=== PATIENT | male | born 1990 | race Caucasian/White ===

== ENCOUNTER 2019-03-25 10:49 | Emergency (ER) | payer SELFPAY ==
[~2019-03-25] VITALS: Ht 167.6 cm; Wt 67.1 kg
[2019-03-25] MEDS ORDERED: IV NORMAL SALINE 1,000ML 1,000 ML IV ONE (11:15)
--- NOTE | 2019-03-25 11:27 | PHYS DOC ---
Past History Past Medical History: No Pertinent History Past Surgical History: Cholecystectomy Alcohol Use: Occasionally Drug Use: None Adult General Chief Complaint Chief Complaint: TESTICULAR PAIN OR INJURY HPI HPI 28-year-old male presents with right testicle and groin pain. 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 He was painting attack on Tuesday, 2 days ago when he had sudden feeling of pain in his testicles. He states that it felt like someone hit him in the testicles. There was no trauma. Patient continued to have achiness yesterday and it seemed to swell. Today when the patient woke up, testicle was extremely tender and swollen on the right. The pain radiates up into the inguinal canal. Even allowing his scrotum pain is very painful. He denies fever or chills. Review of Systems Review of Systems Constitutional: Denies fever or chills [] Eyes: Denies change in visual acuity, redness, or eye pain [] HENT: Denies nasal congestion or sore throat [] Respiratory: Denies cough or shortness of breath [] Cardiovascular: No additional information not addressed in HPI [] GI: Denies abdominal pain, nausea, vomiting, bloody stools or diarrhea [] : Right testicle and groin pain[] Musculoskeletal: Denies back pain or joint pain [] Integument: Denies rash or skin lesions [] Neurologic: Denies headache, focal weakness or sensory changes [] Endocrine: Denies polyuria or polydipsia [] All other systems were reviewed and found to be within normal limits, except as documented in this note. Current Medications Current Medications Current Medications Medications (Trade) Dose Ordered Sig/Mitchell Start Time Stop Time Status Last Admin Dose Admin Iohexol (Omnipaque 300 Mg/ml) 75 ml 1X ONCE 03/25/19 11:30 03/25/19 11:31 UNV Sodium Chloride 1,000 ml @ 1,000 mls/hr 1X ONCE 03/25/19 11:15 03/25/19 12:14 UNV Allergies Allergies Allergies Coded Allergies Type Severity Reaction Last Updated Verified shellfish derived Allergy Severe 03/25/19 Yes Physical Exam Physical Exam Constitutional: Well developed, well nourished, moderate distress, in pain, non- toxic appearance. [] HENT: Normocephalic, atraumatic, bilateral external ears normal, oropharynx moist, no oral exudates, nose normal. [] Eyes: PERRLA, EOMI, conjunctiva normal, no discharge. [] Neck: Normal range of motion, no tenderness, supple, no stridor. [] Cardiovascular:Heart rate regular rhythm, no murmur [] Lungs & Thorax: Bilateral breath sounds clear to auscultation [] Abdomen: Bowel sounds normal, soft, no tenderness, no masses, no pulsatile masses. [] Skin: Warm, dry, no erythema, no rash. [] Back: No tenderness, no CVA tenderness. [] Extremities: No tenderness, no cyanosis, no clubbing, ROM intact, no edema. [] Neurologic: Alert and oriented X 3, normal motor function, normal sensory function, no focal deficits noted. [] Psychologic: Affect normal, judgement normal, mood normal. : The patient's right testicle is very swollen. Difficult to do a thorough exam due to extreme tenderness. Tenderness up to the right inguinal canal. The skin is not hot compared to the right.[] Current Patient Data Vital Signs Vital Signs Date Time Temp Pulse Resp B/P (MAP) Pulse Ox O2 Delivery O2 Flow Rate FiO2 03/25/19 11:09 98.2 110 16 99 Room Air EKG EKG [] Radiology/Procedures Radiology/Procedures [] Impressions: EXAM: CT ABDOMEN/PELVIS WITH CONTRAST. HISTORY: Right groin and testicular pain. TECHNIQUE: Computed tomography of the abdomen and pelvis was performed after the intravenous administration of iodinated contrast. COMPARISON: None. FINDINGS: Lung windows through the visualized portions of the bases reveal mild atelectasis. Bone windows reveal no suspicious lesions. The [id number] is extended inferiorly to include the scrotum. There is a moderate right hydrocele. There is diffuse scrotal edema on the right greater than left. The testicle is unremarkable though CT is not sensitive. Mild stranding extends into the right inguinal ring. There is no drainable collection. Bilateral inguinal lymph nodes are prominent. The kidneys are unremarkable. There is no hydronephrosis or nephroureterolithiasis. There is no clear bladder wall thickening. The liver, gallbladder, pancreas, adrenal glands and spleen are unremarkable. There are no pathologically enlarged lymph nodes. There is no small bowel obstruction. There is no evidence of appendicitis. IMPRESSION: 1. Scrotal edema with hydroceles on the right greater than left. Correlate for scrotal cellulitis. Bilateral inguinal lymphadenopathy is likely reactive in this setting. If there is further concern for primary testicular pathology, sonography is more sensitive. *One or more of the following individualized dose reduction techniques were utilized for this examination: 1. Automated exposure control. 2. Adjustment of the mA and/or kV according to patient size. 3. Use of iterative reconstruction technique. Electronically signed by: Brigid Kemp MD (03/25/2019 12:27 PM) [facility] DICTATED AND SIGNED BY: CELESTINO KEMP MD DATE: 03/25/19 1227 CC: NATASHA WILSON DO; PCP,NO ~ EXAM: Scrotal sonogram with Doppler. HISTORY: Testicular pain and scrotal swelling. COMPARISON: None. FINDINGS: Grayscale and Doppler analysis of the scrotum and contents was performed. The right testicle measures 4.1 x 3.4 x 2.4 cm. The parenchyma is homogeneous. A few microcalcifications are noted. There is increased Doppler flow within the right epididymis epididymitis. Testicular flow may also be mildly increased. There is a moderate right hydrocele. Scrotal thickening is noted. The left testicle measures 3.4 x 2.3 x 1.9 cm. The parenchyma is mildly heterogeneous suggesting mild atrophy. A few microcalcifications are noted. No focal lesions are seen. Testicular flow appears similar to the right. Epididymal flow is not clearly increased. There is no hydrocele. IMPRESSION: 1. Increased perfusion within the right epididymis is consistent with epididymitis. There may be a component of mild orchitis bilaterally. 2. Moderate right hydrocele. Scrotal swelling. Correlate for cellulitis. 3. Bilateral testicular microlithiasis. Some sources suggest sporadic sonographic follow-up given questionable increased risk of malignancy. Urologic follow-up is suggested. Electronically signed by: Brigid Kemp MD (03/25/2019 2:25 PM) [facility] DICTATED AND SIGNED BY: CELESTINO KEMP MD DATE: 03/25/19 1425 CC: NATASHA WILSON DO; PCP,NO ~ Course & Med Decision Making Course & Med Decision Making Pertinent Labs and Imaging studies reviewed. (See chart for details) The patient's labs are unremarkable. His CT and ultrasound suggest epididymitis. His exam is also somewhat suspicious for cellulitis. I will treat him with 1 g of Rocephin in the ED followed by 10 days of levofloxacin area the patient does not begin to improve in 48 hours, I have advised that he follow-up with his physician or come back to the emergency room. I will discharge him with [place] 5/325 for pain. He is stable for discharge at this time. [] Dragon Disclaimer Dragon Disclaimer This electronic medical record was generated, in whole or in part, using a voice recognition dictation system. Departure Departure: Impression: Primary Impression: Cellulitis of scrotum Additional Impression: Acute epididymitis Disposition: HOME, SELF-CARE Condition: STABLE Referrals: PCP,NO (PCP) Patient Instructions: Epididymitis Scripts Hydrocodone Bit/Acetaminophen (NORCO 5-325 TABLET) 1 Each Tablet 1 TAB PO PRN Q6HRS PRN for PAIN, #14 TAB 0 Refills Prov: NATASHA WILSON DO 03/25/19 Levofloxacin (LEVOFLOXACIN) 500 Mg Tablet 1 TAB PO DAILY for epidymitis, #10 TAB Prov: NATASHA WILSON DO 03/25/19 Problem Qualifiers NATASHA WILSON DO Mar 25, 2019 11:27
[2019-03-25] MEDS ORDERED: IOHEXOL 300 MG/ML 75 ML VIAL. IV ONE (11:45)
[2019-03-25] MEDS ORDERED: ONDANSETRON PF 4 MG/2 ML VIAL. IV ONE (11:45)
[2019-03-25] MEDS ORDERED: MORPHINE SULFATE 4 MG/ML DISP.SYRIN. IV ONE ×2 (11:45→12:45)
[2019-03-25 12:04] LABS: BASO # 0.1 x10^3/uL (0.0-0.2); BASO % 0 % (0-3); EOS # 0.1 x10^3/uL (0.0-0.7); EOS % 1 % (0-3); HEMATOCRIT 44.4 % (39.0-53.0); HEMOGLOBIN 15.3 g/dL (13.0-17.5); LYMPH # 1.6 x10^3/uL (1.0-4.8); LYMPH % 7 % (24-48); MEAN CORPUSCULAR HEMOGLOBIN 31 pg (25-35); MEAN CORPUSCULAR HGB CONC 34 g/dL (31-37); MEAN CORPUSCULAR VOLUME 89 fL (79-100); MONO # 2.7 x10^3/uL (0.0-1.1); MONO % 11 % (0-9); NEUT # 18.9 x10^3uL (1.8-7.7); NEUT % 81 % (31-73); PLATELET COUNT 255 x10^3/uL (140-400); RED BLOOD COUNT 4.97 x10^6/uL (4.30-5.70); RED CELL DISTRIBUTION WIDTH 14.6 % (11.5-14.5); WHITE BLOOD COUNT 23.4 x10^3/uL (4.0-11.0)
[2019-03-25 12:15] LABS: ALBUMIN 3.3 g/dL (3.4-5.0); ALBUMIN/GLOBULIN RATIO 0.8 (1.0-1.7); CALCIUM 9.1 mg/dL (8.5-10.1); CREATININE 0.8 mg/dL (0.7-1.3); GFR 113.5; POTASSIUM 3.8 mmol/L (3.5-5.1); TOTAL PROTEIN 7.6 g/dL (6.4-8.2)
--- NOTE | 2019-03-25 12:29 | RAD ---
EXAM: CT ABDOMEN/PELVIS WITH CONTRAST. HISTORY: Right groin and testicular pain. TECHNIQUE: Computed tomography of the abdomen and pelvis was performed after the intravenous administration of iodinated contrast. COMPARISON: None. FINDINGS: Lung windows through the visualized portions of the bases reveal mild atelectasis. Bone windows reveal no suspicious lesions. The [id number] is extended inferiorly to include the scrotum. There is a moderate right hydrocele. There is diffuse scrotal edema on the right greater than left. The testicle is unremarkable though CT is not sensitive. Mild stranding extends into the right inguinal ring. There is no drainable collection. Bilateral inguinal lymph nodes are prominent. The kidneys are unremarkable. There is no hydronephrosis or nephroureterolithiasis. There is no clear bladder wall thickening. The liver, gallbladder, pancreas, adrenal glands and spleen are unremarkable. There are no pathologically enlarged lymph nodes. There is no small bowel obstruction. There is no evidence of appendicitis. IMPRESSION: 1. Scrotal edema with hydroceles on the right greater than left. Correlate for scrotal cellulitis. Bilateral inguinal lymphadenopathy is likely reactive in this setting. If there is further concern for primary testicular pathology, sonography is more sensitive. *One or more of the following individualized dose reduction techniques were utilized for this examination: 1. Automated exposure control. 2. Adjustment of the mA and/or kV according to patient size. 3. Use of iterative reconstruction technique. Electronically signed by: Brigid Kemp MD (03/25/2019 12:27 PM) [facility]
[2019-03-25 12:45] LABS: % ATYL 1 % (0-0); % BANDS 4 % (0-9); % LYMPHS 7 % (24-48); % MONOS 13 % (0-10); % SEGS 75 % (35-66)
[2019-03-25] MEDS ORDERED: LEVO500T8 PO (12:56)
[2019-03-25] MEDS ORDERED: HYDR-3165 PO (12:58)
[2019-03-25 12:59] LABS: PLT ESTIMATE ADEQUATE (ADEQUATE)
[2019-03-25 13:01] LABS: TOXIC GRANULATION PRESENT
[2019-03-25] MEDS ORDERED: IV NORMAL SALINE 50ML 50 ML ONE (13:09)
[2019-03-25] MEDS ORDERED: cefTRIAXone SODIUM 1 GM VIAL ONE (13:09)
[2019-03-25 13:19] VITALS: BP 138/86
--- NOTE | 2019-03-25 14:28 | RAD ---
EXAM: Scrotal sonogram with Doppler. HISTORY: Testicular pain and scrotal swelling. COMPARISON: None. FINDINGS: Grayscale and Doppler analysis of the scrotum and contents was performed. The right testicle measures 4.1 x 3.4 x 2.4 cm. The parenchyma is homogeneous. A few microcalcifications are noted. There is increased Doppler flow within the right epididymis epididymitis. Testicular flow may also be mildly increased. There is a moderate right hydrocele. Scrotal thickening is noted. The left testicle measures 3.4 x 2.3 x 1.9 cm. The parenchyma is mildly heterogeneous suggesting mild atrophy. A few microcalcifications are noted. No focal lesions are seen. Testicular flow appears similar to the right. Epididymal flow is not clearly increased. There is no hydrocele. IMPRESSION: 1. Increased perfusion within the right epididymis is consistent with epididymitis. There may be a component of mild orchitis bilaterally. 2. Moderate right hydrocele. Scrotal swelling. Correlate for cellulitis. 3. Bilateral testicular microlithiasis. Some sources suggest sporadic sonographic follow-up given questionable increased risk of malignancy. Urologic follow-up is suggested. Electronically signed by: Brigid Kemp MD (03/25/2019 2:25 PM) [facility]
== END 2019-03-25 14:13 | disposition home or self-care (01) ==
LOC: ER 10:49
DX: N49.2 Inflammatory disorders of scrotum (principal); N45.1 Epididymitis; N43.3 Hydrocele, unspecified; Z91.013 Allergy to seafood
CPT/HCPCS: 36415; 74177; 76870; 80053; 85007; 85025; 96365; 96375; 96376; 99285; J0696; J2270; J2405; J7030